=== PATIENT | female | born 1985 | race American Indian/Alaskan Native ===

== ENCOUNTER 2017-10-27 13:08 | Outpatient (CLI) | payer OTHER ==
--- NOTE | 2017-10-28 15:11 | Magnetic Resonance Report ---
MRI LEFT KNEE WITHOUT CONTRAST: 10/27/17 CLINICAL: Left knee pain. Internal derangement left knee. TECHNIQUE: Sagittal proton density fat sat and T2, coronal T2 fat sat and proton density and axial gradient T2*sequences a 1.5 Corrie magnet. FINDINGS: Complete tear of the anterior cruciate ligament. The posterior cruciate ligament is intact. Intact collateral ligaments. The medial meniscus is intact. Tear of the posterior horn medial meniscus with oblique signal extending to the inferior articular surface. The femoral cartilage is intact and there is no joint effusion. Intact posterolateral corner structures including the popliteus tendon. Normal patella with intact cartilage, tendon and retinaculum. Normal marrow signal with no bone contusion or fracture. No popliteal cyst. IMPRESSION: 1. Remote tears of the ACL and posterior horn of the lateral meniscus. 2. The rest of the knee is normal.
== END 2017-10-27 13:09 | disposition home or self-care (01) ==
LOC: SPVIMAG 13:08
PROVIDERS: ATTEND Orthopaedic Surgery
DX: S83.282A Other tear of lateral meniscus, current injury, left knee, initial encounter (principal); X58.XXXA Exposure to other specified factors, initial encounter; Y93.89 Activity, other specified; Y92.89 Other specified places as the place of occurrence of the external cause; Y99.8 Other external cause status
CPT/HCPCS: 73721

== ENCOUNTER 2018-03-26 10:25 | Emergency (ER) | payer MEDICAID, OTHER ==
[2018-03-26 10:30] VITALS: BP 143/84
--- NOTE | 2018-03-26 10:40 | Emergency Department Report ---
Blank Doc - Documentation Documentation: Patient is a 32-year-old [place] female who is presenting with vaginal bleeding. Patient states her last menstrual period was normal was approximately a week and a half ago. Patient states she started bleeding again 4 days ago and has been bleeding heavily since. Patient states she is going through 2 pads an hour. Patient states of some mild lightheadedness as well. Patient denies any chest pain shortness of breath fevers chills nausea vomiting at this time. Patient does have some crampy lower abdominal discomfort. Brief physical exam patient's heart lungs and abdomen exams are within normal limits. Urinalysis will be performed as well as a CBC and test. The patient be reassessed.
[2018-03-26 10:53] LABS: HCG Qualitative,Urine Negative (Negative)
[2018-03-26 10:56] LABS: Bilirubin,Urine NEG (Negative); Blood,Urine LG (Negative); Color,Urine Red (Yellow); Urobilinogen,Urine < 2.0 mg/dL (<2.0)
[2018-03-26 10:57] LABS: RBC,Urine > 182.0 /HPF (0.0-6.0)
[2018-03-26 11:05] LABS: Basophils # (Auto) 0.1 K/mm3 (0.0-0.1); Basophils % (Auto) 0.8 % (0.0-1.8); Eosinophils % (Auto) 0.1 % (0.0-4.3); Lymphocytes # (Auto) 1.9 K/mm3 (1.2-5.4); Lymphocytes % (Auto) 24.3 % (13.4-35.0); Mean Corpuscular HGB Conc 32 % (30-34); Mean Corpuscular Volume 76 fl (79-97); Monocytes # (Auto) 0.4 K/mm3 (0.0-0.8); Monocytes % (Auto) 4.7 % (0.0-7.3); Platelet Count 390 K/mm3 (140-440); Red Blood Count 4.48 M/mm3 (3.65-5.03)
[2018-03-26 11:11] LABS: Mean Corpuscular Hemoglobin 25 pg (28-32); Red Cell Distribution Width 21.9 % (13.2-15.2)
[2018-03-26 11:16] LABS: BUN/Creatinine Ratio 13; Blood Urea Nitrogen 9 mg/dL (7-17); Calcium 8.8 mg/dL (8.4-10.2); Hemolysis Index 9
--- NOTE | 2018-03-26 11:19 | Emergency Department Report ---
ED Female HPI - General Chief complaint: Vaginal Bleeding Stated complaint: VAGINAL BLEEDING Time Seen by Provider: 03/26/18 10:33 Source: patient Mode of arrival: Ambulatory Limitations: No Limitations - History of Present Illness Initial comments: Patient is a 32-year-old [place] female who is presenting with vaginal bleeding. Patient states her last menstrual period was normal was approximately a week and a half ago. Patient states she started bleeding again 4 days ago and has been bleeding heavily since. Patient states she is going through 2 pads an hour. Patient states of some mild lightheadedness as well. Patient denies any chest pain shortness of breath fevers chills nausea vomiting at this time. Patient does have some crampy lower abdominal discomfort. - Related Data Previous Rx's Medication Instructions Recorded Last Taken Type Metoprolol Xl [Metoprolol 25 mg PO QDAY #30 tablet 07/17/15 Unknown Rx SUCCINATE ER TAB] medroxyPROGESTERone ACETATE 10 mg PO DAILY #10 tablet 03/26/18 Unknown Rx [Provera] Allergies Allergy/AdvReac Type Severity Reaction Status Date / Time No Known Allergies Allergy Verified 03/26/18 10:27 ED Review of Systems ROS: Stated complaint: VAGINAL BLEEDING Other details as noted in HPI Comment: All other systems reviewed and negative ED Past Medical Hx - Past Medical History Hx Headaches / Migraines: Yes Hx Asthma: Yes - Surgical History Past Surgical History?: No - Social History Smoking Status: Never Smoker Substance Use Type: None - Medications Home Medications: Home Medications Medication Instructions Recorded Confirmed Last Taken Type Metoprolol Xl [Metoprolol 25 mg PO QDAY #30 tablet 07/17/15 Unknown Rx SUCCINATE ER TAB] medroxyPROGESTERone ACETATE 10 mg PO DAILY #10 tablet 03/26/18 Unknown Rx [Provera] ED Physical Exam - General Limitations: No Limitations General appearance: alert, in no apparent distress - Head Head exam: Present: atraumatic, normocephalic - Eye Eye exam: Present: normal appearance - ENT ENT exam: Present: mucous membranes moist - Neck Neck exam: Present: normal inspection - Respiratory Respiratory exam: Present: normal lung sounds bilaterally. Absent: respiratory distress, wheezes, rales, rhonchi - Cardiovascular Cardiovascular Exam: Present: regular rate, normal rhythm. Absent: systolic murmur, diastolic murmur, rubs, gallop - GI/Abdominal GI/Abdominal exam: Present: soft, normal bowel sounds. Absent: distended, tenderness, guarding, rebound - Extremities Exam Extremities exam: Present: normal inspection - Back Exam Back exam: Present: normal inspection - Neurological Exam Neurological exam: Present: alert, oriented X3 - Psychiatric Psychiatric exam: Present: normal affect, normal mood - Skin Skin exam: Present: warm, dry, intact, normal color. Absent: rash ED Course Vital Signs 03/26/18 10:27 Temperature 99.1 F Pulse Rate 96 H Respiratory 20 Rate Blood Pressure 143/84 O2 Sat by Pulse 100 Oximetry ED Medical Decision Making - Lab Data Result diagrams: 03/26/18 10:43 Lab Results 03/26/18 03/26/18 03/26/18 Range/Units 10:38 10:43 10:43 WBC 7.8 (4.5-11.0) K/mm3 RBC 4.48 (3.65-5.03) M/mm3 Hgb 11.0 (10.1-14.3) gm/dl Hct 34.0 (30.3-42.9) % MCV 76 L (79-97) fl MCH 25 L (28-32) pg MCHC 32 (30-34) % RDW 21.9 H (13.2-15.2) % Plt Count 390 (140-440) K/mm3 Lymph % (Auto) 24.3 (13.4-35.0) % Foster % (Auto) 4.7 (0.0-7.3) % Eos % (Auto) 0.1 (0.0-4.3) % Baso % (Auto) 0.8 (0.0-1.8) % Lymph # 1.9 (1.2-5.4) K/mm3 Foster # 0.4 (0.0-0.8) K/mm3 Eos # 0.0 (0.0-0.4) K/mm3 Baso # 0.1 (0.0-0.1) K/mm3 Seg Neutrophils % 70.1 H (40.0-70.0) % Seg Neutrophils # 5.4 (1.8-7.7) K/mm3 Sodium 140 (137-145) mmol/L Potassium 4.2 (3.6-5.0) mmol/L Chloride 103.0 (98-107) mmol/L Carbon Dioxide 23 (22-30) mmol/L Anion Gap 18 mmol/L BUN 9 (7-17) mg/dL Creatinine 0.7 (0.7-1.2) mg/dL Estimated GFR > 60 ml/min BUN/Creatinine Ratio 13 % Glucose 106 H (65-100) mg/dL Calcium 8.8 (8.4-10.2) mg/dL HCG, Qual (Negative) Urine Color Red (Yellow) Urine Turbidity Cloudy (Clear) Urine pH 5.0 (5.0-7.0) Ur Specific [place] 1.035 H (1.003-1.030) Urine Protein 100 mg/dl (Negative) mg/dL Urine Glucose (UA) 50 (Negative) mg/dL Urine Ketones Neg (Negative) mg/dL Urine Blood Lg (Negative) Urine Nitrite Neg (Negative) Ur Reducing Substances Not Reportable Urine Bilirubin Neg (Negative) Urine Ictotest Not Reportable Urine Urobilinogen < 2.0 (<2.0) mg/dL Ur Leukocyte Esterase Sm (Negative) Urine WBC (Auto) 57.0 H (0.0-6.0) /HPF Urine RBC (Auto) > 182.0 (0.0-6.0) /HPF U Epithel Cells (Auto) 15.0 H (0-13.0) /HPF Urine HCG, Qual Negative (Negative) 03/26/18 Range/Units 10:43 WBC (4.5-11.0) K/mm3 RBC (3.65-5.03) M/mm3 Hgb (10.1-14.3) gm/dl Hct (30.3-42.9) % MCV (79-97) fl MCH (28-32) pg MCHC (30-34) % RDW (13.2-15.2) % Plt Count (140-440) K/mm3 Lymph % (Auto) (13.4-35.0) % Foster % (Auto) (0.0-7.3) % Eos % (Auto) (0.0-4.3) % Baso % (Auto) (0.0-1.8) % Lymph # (1.2-5.4) K/mm3 Foster # (0.0-0.8) K/mm3 Eos # (0.0-0.4) K/mm3 Baso # (0.0-0.1) K/mm3 Seg Neutrophils % (40.0-70.0) % Seg Neutrophils # (1.8-7.7) K/mm3 Sodium (137-145) mmol/L Potassium (3.6-5.0) mmol/L Chloride (98-107) mmol/L Carbon Dioxide (22-30) mmol/L Anion Gap mmol/L BUN (7-17) mg/dL Creatinine (0.7-1.2) mg/dL Estimated GFR ml/min BUN/Creatinine Ratio % Glucose (65-100) mg/dL Calcium (8.4-10.2) mg/dL HCG, Qual Negative (Negative) Urine Color (Yellow) Urine Turbidity (Clear) Urine pH (5.0-7.0) Ur Specific [place] (1.003-1.030) Urine Protein (Negative) mg/dL Urine Glucose (UA) (Negative) mg/dL Urine Ketones (Negative) mg/dL Urine Blood (Negative) Urine Nitrite (Negative) Ur Reducing Substances Urine Bilirubin (Negative) Urine Ictotest Urine Urobilinogen (<2.0) mg/dL Ur Leukocyte Esterase (Negative) Urine WBC (Auto) (0.0-6.0) /HPF Urine RBC (Auto) (0.0-6.0) /HPF U Epithel Cells (Auto) (0-13.0) /HPF Urine HCG, Qual (Negative) - Medical Decision Making Patient is not therefore ruling out ectopic and her hemoglobin within normal limits. Patient be referred to her transcripter. Patient started on Provera to try to slow her bleeding. Critical care attestation.: If time is entered above; I have spent that time in minutes in the direct care of this critically ill patient, excluding procedure time. ED Disposition Clinical Impression: DUB (dysfunctional uterine bleeding) Disposition: DC-01 TO HOME OR SELFCARE Is pt being admited?: No Does the pt Need Aspirin: No Condition: Stable Instructions: Dysfunctional Uterine Bleeding (ED) Additional Instructions: Please follow-up with your [facility] sometime this week for further management. Prescriptions: medroxyPROGESTERone ACETATE [Provera] 10 mg PO DAILY #10 tablet Referrals: PRIMARY CARE, [Primary Care Provider] - 3-5 Days
== END 2018-03-26 11:39 | disposition home or self-care (01) ==
LOC: ED 10:25
DX: N93.8 Other specified abnormal uterine and vaginal bleeding (principal); G43.909 Migraine, unspecified, not intractable, without status migrainosus; R42 Dizziness and giddiness; R10.30 Lower abdominal pain, unspecified
CPT/HCPCS: 36415; 80048; 81001; 81025; 84703; 85025; 99283